=== PATIENT | female | born 1995 | race Caucasian/White ===

== ENCOUNTER 2017-11-05 12:18 | Emergency (ER) | payer SELFPAY ==
[~2017-11-05] VITALS: Ht 170.2 cm; Wt 95.3 kg
--- NOTE | 2017-11-05 12:45 | NUR ---
PT AMBULATORY TO ER BED 14. C/O N/V SINCE THIS AM. ADMITS TO DRINKING AND MARIJUANA USE LAST NIGHT. STABLE VITALS. NAD NOTED AWAITING MD BARKER.
--- NOTE | 2017-11-05 12:52 | NUR ---
RANJIT LEE AT BEDSIDE FOR EVAL.
[2017-11-05] MEDS ORDERED: IV NS 0.9% 1,000 ML BAG IV ONE ×2 (13:00→14:30)
[2017-11-05] MEDS ORDERED: PANTOPRAZOLE 40 MG VIAL IV ONE (13:00)
[2017-11-05] MEDS ORDERED: ONDANSETRON HCL/PF 4 MG/2 ML VIAL IVP ONE (13:00)
--- NOTE | 2017-11-05 13:10 | NUR ---
IV LINE STARTD BLOOD DRAWN AND SENT TO LAB.
--- NOTE | 2017-11-05 13:10 | NUR ---
UNABLE TO PROVIDE URINE SAMPLE AT THIS TIME.
[2017-11-05] MEDS ORDERED: ONDANSETRON HCL/PF 4 MG/2 ML VIAL ONE (13:12)
[2017-11-05] MEDS ORDERED: PANTOPRAZOLE 40 MG VIAL ONE (13:12)
[2017-11-05] MEDS ORDERED: METOCLOPRAMIDE HCL 10 MG/2 ML VIAL ONE (13:37)
[2017-11-05] MEDS ORDERED: diphenhydrAMINE HCL 50 MG/ML VIAL ONE (13:38)
[2017-11-05] MEDS ORDERED: METOCLOPRAMIDE HCL 10 MG/2 ML VIAL IV ONE (14:00)
[2017-11-05] MEDS ORDERED: diphenhydrAMINE HCL 50 MG/ML VIAL IV ONE (14:00)
[2017-11-05 14:02] LABS: BASOPHILS # (AUTO) 0.1 /CMM (0.0-0.2); BASOPHILS % (AUTO) 0.4 % (0.0-2.0); HEMATOCRIT 47 % (33-45); HEMOGLOBIN 15.6 g/dL (11.5-14.8); LYMPHOCYTES # (AUTO) 0.8 /CMM (0.8-4.8); LYMPHOCYTES % (AUTO) 3.7 % (20.0-44.0); MEAN CORPUSCULAR HEMOGLOBIN 31 PG (26.0-33.0); MEAN CORPUSCULAR HGB CONC 34 g/dl (31.0-36.0); MEAN CORPUSCULAR VOLUME 92 fL (82-100); MONOCYTES # (AUTO) 0.5 /CMM (0.1-1.30); MONOCYTES % (AUTO) 2.4 % (2.0-12.0); NEUTROPHILS # (AUTO) 19.5 /CMM (1.8-8.9); NEUTROPHILS % (AUTO) 93.5 % (43.0-81.0); PLATELET COUNT (AUTO) 415 /CMM (150-450); RDW COEFFICIENT OF VARIATION 13.4 (11.5-15.0); RED BLOOD CELL COUNT(AUTO) 5.09 MIL/uL (4.0-5.2); WHITE BLOOD COUNT (AUTO) 20.9 K/uL (4.3-11.0)
[2017-11-05 14:10] LABS: CALCIUM, SERUM 9.7 mg/dL (8.5-10.1); CREATININE 0.9 mg/dL (0.6-1.3); POTASSIUM 3.6 mmol/L (3.5-5.1)
--- NOTE | 2017-11-05 14:10 | NUR ---
PT STATES TRIED TO PEE BUT UNABLE TO. RANJIT LEE AWARE.
--- NOTE | 2017-11-05 14:15 | NUR ---
PT IS STILL C/O SEVERE NAUSEA. RANJIT LEE MADE AWARE. NO NEW ORDERS AT THIS TIME.
[2017-11-05 14:16] LABS: ALBUMIN 4.5 g/dL (3.4-5.0); BILIRUBIN,DIRECT 0.2 mg/dL (0.0-0.2); BILIRUBIN,TOTAL 1.2 mg/dL (0.2-1.0); TOTAL PROTEIN, SERUM 8.1 g/dL (6.4-8.2)
[2017-11-05 14:41] LABS: BAND % (MANUAL) 6 % (0.0-5.0); LYMPHOCYTES % (MANUAL) 3 % (16-48); MONOCYTES % (MANUAL) 3 % (0-11.0); NEUTROPHILS % (MANUAL) 86 (42-76)
[2017-11-05 14:44] LABS: APPEARANCE,URINE CLEAR (CLEAR); BILIRUBIN,URINE NEGATIVE (NEGATIVE); BLOOD, URINE NEGATIVE Ery/uL (NEGATIVE); COLOR,URINE YELLOW (YELLOW); KETONES,URINE 3+ (NEGATIVE); LEUKOCYTE ESTERASE ,URINE NEGATIVE (NEGATIVE); NITRITE, URINE NEGATIVE (NEGATIVE); PH,URINE 8.5 (5.0-8.0); PROTEIN,URINE 1+ mg/dl (NEGATIVE); UGLUCOSE NEGATIVE (NEGATIVE); UROBILINOGEN,URINE 0.2 EU/dL (0.2)
[2017-11-05] MEDS ORDERED: HALOPERIDOL LACTATE INJ 5 MG/ML VIAL ONE ×2 (14:45→15:35)
[2017-11-05] MEDS ORDERED: HALOPERIDOL LACTATE INJ 5 MG/ML VIAL IM ONE ×2 (15:00→15:30)
[2017-11-05 15:16] LABS: BACTERIA,URINE None seen /HPF (None Seen); RBC,URINE 0-2 /HPF (0-2); SQUAMOUS EPITHELIAL CELL,UR Few /HPF (None Seen); WBC,URINE 0-2 /HPF (0-3)
--- NOTE | 2017-11-05 16:12 | NUR ---
Patient discharged to home in stable condition. Written and verbal after care instructions given. Patient and Father verbalizes understanding of instruction.IV removed. Catheter intact and site benign. Pressure and 4x4 applied to site. No bleeding noted.
[2017-11-05 16:13] VITALS: BP 136/84
== END 2017-11-05 16:13 | disposition home or self-care (01) ==
LOC: ER 12:22
DX: R11.2 Nausea with vomiting, unspecified (principal); F12.10 Cannabis abuse, uncomplicated; E86.0 Dehydration; D72.828 Other elevated white blood cell count; R82.4 Acetonuria; J45.909 Unspecified asthma, uncomplicated; F17.200 Nicotine dependence, unspecified, uncomplicated
CPT/HCPCS: 36415; 80048; 80076; 81001; 83690; 84703; 85025; 96372; 96374; 96375; 99284; A4606; C9113; J1200; J1630 ×2; J2405; J2765; J7030 ×2; Z7610; 81000-TC

== ENCOUNTER 2017-11-06 21:01 | Emergency (ER) | payer SELFPAY ==
[~2017-11-06] VITALS: Ht 170.2 cm; Wt 95.3 kg
[2017-11-06] MEDS ORDERED: METOCLOPRAMIDE HCL 10 MG/2 ML VIAL IV ONE (22:30)
[2017-11-06] MEDS ORDERED: IV NS 0.9% 1,000 ML BAG IV ONE (22:30)
--- NOTE | 2017-11-06 22:30 | NUR ---
PT CAME IN WITH C/O NAUSEA AND VOMITING X 4 TODAY. WAS HERE YESTERDAY FOR THE SAME COMPLAINTS. NO RELIEF FROM SYMPTOMS. MD AT BS FOR EVAL. VSS. SAFETY AND COMFORT MEASURES PROVIDED. WILL MONITOR.
[2017-11-06] MEDS ORDERED: METOCLOPRAMIDE HCL 10 MG/2 ML VIAL ONE (22:32)
--- NOTE | 2017-11-06 22:42 | NUR ---
IV ACCESS STARTED. PT MEDICATED ORDERED.
[2017-11-06 23:33] VITALS: BP 149/65
== END 2017-11-06 23:44 | disposition home or self-care (01) ==
LOC: ER 21:03
DX: R11.2 Nausea with vomiting, unspecified (principal); J45.909 Unspecified asthma, uncomplicated; F17.200 Nicotine dependence, unspecified, uncomplicated; F12.10 Cannabis abuse, uncomplicated
CPT/HCPCS: 96361; 96374; 99284; A4606; J2765; J7030; Z7610

== ENCOUNTER 2017-11-11 14:24 | Emergency (ER) | payer SELFPAY ==
[~2017-11-11] VITALS: Ht 170.2 cm; Wt 94.3 kg
[2017-11-11] MEDS ORDERED: ONDANSETRON HCL/PF 4 MG/2 ML VIAL IVP ONE (15:00)
[2017-11-11] MEDS ORDERED: IV NS 0.9% 1,000 ML BAG IV ONE (15:00)
[2017-11-11 15:08] LABS: BASOPHILS # (AUTO) 1.2 /CMM (0.0-0.2); EOSINOPHILS # (AUTO) 0.1 /CMM (0.0-0.7); EOSINOPHILS % (AUTO) 0.9 % (0.0-6.0); HEMATOCRIT 46 % (33-45); HEMOGLOBIN 15.7 g/dL (11.5-14.8); LYMPHOCYTES # (AUTO) 5.1 /CMM (0.8-4.8); LYMPHOCYTES % (AUTO) 30.4 % (20.0-44.0); MEAN CORPUSCULAR HEMOGLOBIN 30 PG (26.0-33.0); MEAN CORPUSCULAR HGB CONC 34 g/dl (31.0-36.0); MEAN CORPUSCULAR VOLUME 89 fL (82-100); MONOCYTES # (AUTO) 1.2 /CMM (0.1-1.30); MONOCYTES % (AUTO) 7.1 % (2.0-12.0); NEUTROPHILS % (AUTO) 54.6 % (43.0-81.0); PLATELET COUNT (AUTO) 473 /CMM (150-450); RDW COEFFICIENT OF VARIATION 12.4 (11.5-15.0); RED BLOOD CELL COUNT(AUTO) 5.18 MIL/uL (4.0-5.2); WHITE BLOOD COUNT (AUTO) 16.6 K/uL (4.3-11.0)
[2017-11-11] MEDS ORDERED: ONDANSETRON HCL/PF 4 MG/2 ML VIAL ONE (15:08)
[2017-11-11 15:15] LABS: CALCIUM, SERUM 9.2 mg/dL (8.5-10.1); CREATININE 0.8 mg/dL (0.6-1.3); POTASSIUM 3.4 mmol/L (3.5-5.1)
[2017-11-11 15:21] LABS: ALBUMIN 4.3 g/dL (3.4-5.0); BILIRUBIN,DIRECT 0.1 mg/dL (0.0-0.2); BILIRUBIN,TOTAL 0.6 mg/dL (0.2-1.0); TOTAL PROTEIN, SERUM 7.8 g/dL (6.4-8.2)
[2017-11-11] MEDS ORDERED: METOCLOPRAMIDE HCL 10 MG/2 ML VIAL ONE (15:43)
[2017-11-11] MEDS ORDERED: LORAZEPAM 1 MG TABLET ONE (15:46)
[2017-11-11] MEDS ORDERED: METOCLOPRAMIDE HCL 10 MG/2 ML VIAL IV ONE (16:00)
[2017-11-11] MEDS ORDERED: LORAZEPAM 1 MG TABLET PO ONE (16:00)
[2017-11-11 16:12] LABS: APPEARANCE,URINE Cloudy (CLEAR); BILIRUBIN,URINE Negative (NEGATIVE); BLOOD, URINE Negative Ery/uL (NEGATIVE); COLOR,URINE Yellow (YELLOW); KETONES,URINE 15 (NEGATIVE); LEUKOCYTE ESTERASE ,URINE Small (NEGATIVE); NITRITE, URINE Negative (NEGATIVE); PH,URINE 7.5 (5.0-8.0); PROTEIN,URINE Negative (NEGATIVE); UGLUCOSE Negative (NEGATIVE); UROBILINOGEN,URINE 0.2 EU/dL (0.2)
[2017-11-11 16:17] LABS: BACTERIA,URINE None seen /HPF (None Seen); SQUAMOUS EPITHELIAL CELL,UR Few /HPF (None Seen)
[2017-11-11 16:40] VITALS: BP 151/66
[2017-11-11] MEDS ORDERED: POTASSIUM CHLORIDE 20 MEQ TAB.PRT.SR PO ONE (17:00)
== END 2017-11-11 16:47 | disposition home or self-care (01) ==
LOC: ER 14:26
DX: R11.2 Nausea with vomiting, unspecified (principal); F12.10 Cannabis abuse, uncomplicated; N39.0 Urinary tract infection, site not specified; E87.6 Hypokalemia; J45.909 Unspecified asthma, uncomplicated; F17.200 Nicotine dependence, unspecified, uncomplicated
CPT/HCPCS: 36415; 80048; 80076; 80305; 81001; 83690; 84703; 85025; 96361; 96374; 96375; 99284; A4606; J2405; J2765; J7030; Z7610; 81000-TC

== ENCOUNTER 2017-11-14 02:41 | Emergency (ER) | payer MEDICAID ==
[~2017-11-14] VITALS: Ht 167.6 cm; Wt 94.3 kg
--- NOTE | 2017-11-14 03:39 | NUR ---
PATIENT TO ER BED
[2017-11-14] MEDS ORDERED: ONDANSETRON HCL/PF 4 MG/2 ML VIAL ONE (03:43)
[2017-11-14] MEDS ORDERED: FAMOTIDINE/PF INJ 20 MG/2 ML VIAL IV ONE ×2 (03:55→04:00)
[2017-11-14] MEDS ORDERED: IV NS 0.9% 1,000 ML BAG IV ONE (04:00)
[2017-11-14] MEDS ORDERED: ONDANSETRON HCL/PF 4 MG/2 ML VIAL IVP ONE (04:00)
--- NOTE | 2017-11-14 04:02 | NUR ---
MEDICATED PATIENT ORDERED. PATIENT BED IN LOW POSITION, SIDE RAILS UP. PATIENT IS ON [employer], CALL LIGHT WITHIN REACH. NO DISTRESS NOTED, SKIN WARM AND DRY, RESP EVEN AND UNLABORED. WILL CONTINUE TO MONITOR
[2017-11-14] MEDS ORDERED: HALOPERIDOL LACTATE INJ 5 MG/ML VIAL ONE (04:55)
[2017-11-14] MEDS ORDERED: HALOPERIDOL LACTATE INJ 5 MG/ML VIAL IV ONE (05:00)
[2017-11-14 05:06] LABS: CALCIUM, SERUM 9.3 mg/dL (8.5-10.1); POTASSIUM 3.2 mmol/L (3.5-5.1)
[2017-11-14 05:12] LABS: ALBUMIN 4.2 g/dL (3.4-5.0); BILIRUBIN,DIRECT 0.1 mg/dL (0.0-0.2); BILIRUBIN,TOTAL 0.6 mg/dL (0.2-1.0); TOTAL PROTEIN, SERUM 7.8 g/dL (6.4-8.2)
[2017-11-14 05:39] LABS: INR 0.92 (0.87-1.13); PROTHROMBIN TIME 9.6 SECS (9.5-12.7)
[2017-11-14 05:59] LABS: BASOPHILS # (AUTO) 0.1 /CMM (0.0-0.2); BASOPHILS % (AUTO) 0.5 % (0.0-2.0); EOSINOPHILS # (AUTO) 0.1 /CMM (0.0-0.7); EOSINOPHILS % (AUTO) 0.4 % (0.0-6.0); HEMATOCRIT 45 % (33-45); HEMOGLOBIN 15.3 g/dL (11.5-14.8); LYMPHOCYTES # (AUTO) 1.4 /CMM (0.8-4.8); LYMPHOCYTES % (AUTO) 11.7 % (20.0-44.0); MEAN CORPUSCULAR HEMOGLOBIN 31 PG (26.0-33.0); MEAN CORPUSCULAR HGB CONC 34 g/dl (31.0-36.0); MEAN CORPUSCULAR VOLUME 92 fL (82-100); MONOCYTES # (AUTO) 0.2 /CMM (0.1-1.30); MONOCYTES % (AUTO) 1.6 % (2.0-12.0); NEUTROPHILS # (AUTO) 10.4 /CMM (1.8-8.9); NEUTROPHILS % (AUTO) 85.8 % (43.0-81.0); PLATELET COUNT (AUTO) 438 /CMM (150-450); RDW COEFFICIENT OF VARIATION 13.5 (11.5-15.0); RED BLOOD CELL COUNT(AUTO) 4.94 MIL/uL (4.0-5.2); WHITE BLOOD COUNT (AUTO) 12.1 K/uL (4.3-11.0)
--- NOTE | 2017-11-14 06:17 | NUR ---
D/C INSTRUCTIONG GIVEN TO PATIENT. PATIENT AGREED AND HAD NO QUESTIONS
[2017-11-14 06:18] VITALS: BP 135/78
== END 2017-11-14 06:18 | disposition home or self-care (01) ==
LOC: ER 02:42
DX: K29.20 Alcoholic gastritis without bleeding (principal); K31.89 Other diseases of stomach and duodenum; R11.2 Nausea with vomiting, unspecified; J45.909 Unspecified asthma, uncomplicated; F17.200 Nicotine dependence, unspecified, uncomplicated
CPT/HCPCS: 36415; 80048; 80076; 83690; 84703; 85025; 85730; 96361; 96374; 96375; 99284; A4606; J1630; J2405; J3490; Z7610